=== PATIENT | male | born 1980 | race Caucasian/White ===

== ENCOUNTER 2019-03-24 01:50 | Emergency (ER) | payer MEDICAID ==
[~2019-03-24] VITALS: Ht 170.2 cm; Wt 79.4 kg
[2019-03-24 01:56] VITALS: BP_SYST 143
--- NOTE | 2019-03-24 02:40 | NUR ---
Patient to ER bed 6 to gown for evaluation. Side rails up. Report given to YAMILA Gallagher.
--- NOTE | 2019-03-24 02:58 | NUR ---
38 y/o M presents to ED w/ c/o of flu like symptoms. Pt states this happened earlier today around 2 pm and hs gotten worse. Pt reports a fever of 103.0 at one point in the day, but has decreased to 100.5. Pt states he is having chills, denies SOB, is having N/V x4, and diarrhea x8 today. No significant Hx noted. No surgeries noted. Pt denies any pain. Will continue to monitor.
[2019-03-24 03:40] LABS: BASOPHILS % (AUTO) 0.5 % (0.0-2.0); EOSINOPHILS # (AUTO) 0.1 K/uL (0.0-0.4); EOSINOPHILS % (AUTO) 2.4 % (0.0-4.0); HEMATOCRIT 43.3 % (36-54); HEMOGLOBIN 14.6 g/dL (14.0-18.0); MEAN CORPUSCULAR HEMOGLOBIN 31 pg (27-31); MEAN CORPUSCULAR HGB CONC 34 % (32-36); MEAN CORPUSCULAR VOLUME 92 fL (79.0-98.0); MONOCYTES # (AUTO) 0.6 K/uL (0.0-1.0); MONOCYTES % (AUTO) 10.3 % (1.7-9.3); NEUTROPHILS % (AUTO) 68.8 % (40.0-70.0); PLATELET COUNT (AUTO) 210 K/uL (130-430); RED BLOOD CELL COUNT(AUTO) 4.68 MIL/uL (4.2-6.2); RED CELL DISTRIBUTION WIDTH 13.2 % (9.0-15.0); WHITE BLOOD COUNT (AUTO) 5.7 K/uL (4.8-10.8)
--- NOTE | 2019-03-24 05:20 | NUR ---
Dr. Brock at bedside examining Pt.
[2019-03-24] MEDS ORDERED: OSELTAMIVIR PHOSPHATE 75 MG CAPSULE PO ONE (05:30)
[2019-03-24 05:48] VITALS: BP_SYST 132
--- NOTE | 2019-03-24 05:48 | NUR ---
Patient given written and verbal discharge instructions and verbalizes understanding. ER MD discussed with patient the results and treatment provided. Patient in stable condition. ID arm band removed. Rx of Tamiflu given. Patient educated on pain management and to follow up with PMD. Pain Scale 0/10. Opportunity for questions provided and answered. Medication side effect fact sheet provided.
== END 2019-03-24 05:48 | disposition home or self-care (01) ==
LOC: SED 01:50
DX: J11.1 Influenza due to unidentified influenza virus with other respiratory manifestations (principal)
CPT/HCPCS: 36415; 71045; 85025; 86710; 87040; 99284; G9035